=== PATIENT | male | born 1955 | race Caucasian/White ===

== ENCOUNTER 2023-12-13 07:10 | Outpatient (CLI) | payer MEDICARE ==
[~2023-12-13 07:10] MED LIST: NO HOME MEDS
[2023-12-13 08:05] VITALS: PULSE 68; RESP 16; O2SAT 97
== END 2023-12-13 23:59 | disposition home or self-care (01) ==
LOC: RT 07:10
PROVIDERS: ATTEND Family Medicine
DX: R06.2 Wheezing (principal)
CPT/HCPCS: 94010; 94760